=== PATIENT | male | born 1950 | race Caucasian/White ===

== ENCOUNTER 2017-12-20 05:31 | Observation (INO) | payer OTHER ==
[~2017-12-20] VITALS: Ht 177.8 cm; Wt 96.2 kg
[~2017-12-20 05:31] MED LIST: ADVAIR HFA120 INHALA IH; ADVIL,NUPRIN,M200 MG PO; ALBUTEROL IH; ALPRAZOLAM0.5 MG PO; AMARYL2 MG PO; AMLODIPINE BESY10 MG PO; ASPIRIN325 MG PO; ASPIRIN81 M2 PO; ATORVASTATIN CA80 MG PO; CHANTIX STARTER PACK; CHANTIX1 EACH PO; DUONEB 2.5-0.5 M3 ML AEROSOL; Effient PO; GLIMEPIRIDE4 MG PO; IMDUR120 MG PO; ISOSORBIDE MONO30 MG PO; ISOSORBIDE MONO60 MG PO; LABETALOL HCL200 MG PO; LEVOFLOXACIN500 MG PO; LIPITOR80 MG PO; Lopressor PO; METOPROLOL TART25 MG PO; NICOTINE PATCH1 EAC1 TD; NICOTINE PATCH1 EAC2 TD; NITROSTAT0.4 MG SL; Nitrostat,NitroQuick SL; OXYCODONE-APAP1 EACH PO; PANTOPRAZOLE SO40 MG PO; PLAVIX75 MG PO; PREDNISONE10 MG PO; PREDNISONE20 MG PO; PROTONIX40 MG PO; PROVENTIL,2.5 MG/3 M IH; Pravachol PO; SERTRALINE HCL100 MG PO; SPIRIVA RESPIMAT4 GM IH; SPIRIVA1 INHALATI IH; TIZANIDINE HCL4 M1 PO; TYLENOL REGULA325 MG PO; Tylenol Regular Stre PO; XANAX1 MG PO; ZESTORETIC 20-1 EAC1 PO; ZOCOR40 MG PO
[2017-12-20 05:59] LABS: HEMOGLOBIN 13.6 G/DL (12.5-16.6); MCH 31.2 PG (29.0-34.0); MCHC 34.9 G/DL (30.0-36.0); MCV 89.4 FL (86-99); PLATELET COUNT 168 K/uL (156-360); RBC DIS.WIDTH-CV 13.2 % (11.8-14.6); RED BLOOD COUNT 4.36 M/uL (4.00-5.50); WHITE BLOOD COUNT 7.8 K/uL (4.1-10.2)
[2017-12-20 06:14] LABS: CHLORIDE 98 mEq/L (99-109); POTASSIUM 4.1 mEq/L (3.7-5.4); SODIUM 135 mEq/L (136-147)
[2017-12-20 06:16] LABS: GLUCOSE 108 mg/dL (70-99)
[2017-12-20 06:17] LABS: TROP-I INTERPRETATION NEGATIVE; TROPONIN-I < 0.01 ng/mL (0.0-0.30)
[2017-12-20 06:20] LABS: CREATININE 0.6 mg/dL (0.6-1.3); GFR ESTIMATE (CALCULATED) > 59 mL/min/ (58.99-99999)
[2017-12-20 06:21] LABS: UREA NITROGEN (BUN) 12 mg/dL (9-23)
[2017-12-20 11:43] VITALS: BP 148/64
[2017-12-20 16:21] LABS: TROP-I INTERPRETATION NEGATIVE; TROPONIN-I < 0.01 ng/mL (0.0-0.30)
[2017-12-20 18:40] VITALS: BP 110/57
[2017-12-20 19:36] VITALS: BP 110/50
[2017-12-20 22:28] LABS: TROP-I INTERPRETATION NEGATIVE; TROPONIN-I 0.01 ng/mL (0.0-0.30)
[2017-12-21 04:09] VITALS: BP 126/69
[2017-12-21 12:00] VITALS: BP 131/67
[2017-12-21] MEDS ORDERED: ZOLPIDEM TARTRAT5 MG PO (15:44)
[2017-12-21 16:38] VITALS: BP 125/59
== END 2017-12-21 16:42 | disposition home or self-care (01) ==
LOC: EME 05:31 → EDOF 08:45 → ENRESERV 08:46 → 5WEST 11:19
PROVIDERS: Emergency Medicine; Internal Medicine
DX: R07.9 Chest pain, unspecified (principal); I25.10 Atherosclerotic heart disease of native coronary artery without angina pectoris; E11.9 Type 2 diabetes mellitus without complications; I10 Essential (primary) hypertension; J44.9 Chronic obstructive pulmonary disease, unspecified; I25.2 Old myocardial infarction; Z95.5 Presence of coronary angioplasty implant and graft; M19.90 Unspecified osteoarthritis, unspecified site; G89.4 Chronic pain syndrome; M54.5 Low back pain; F17.200 Nicotine dependence, unspecified, uncomplicated; Z82.49 Family history of ischemic heart disease and other diseases of the circulatory system; Z83.3 Family history of diabetes mellitus; Z79.84 Long term (current) use of oral hypoglycemic drugs; Z79.891 Long term (current) use of opiate analgesic
CPT/HCPCS: 71045; 80048; 82948; 83880; 84484; 85027; 93005; 94799; G0378; J1170; J1650; J1815; J2270; J2405; J7030